=== PATIENT | male | born 1995 | race Caucasian/White ===

== ENCOUNTER → 2017-04-19 | Outpatient (CLI) | payer OTHER | LOC: BMCIMAGING 11:28 | PROVIDERS: ATTEND Family Medicine | DX: S69.91XA Unspecified injury of right wrist, hand and finger(s), initial encounter (principal) ==

== ENCOUNTER 2017-11-15 17:10 | Emergency (ER) | payer OTHER, BC ==
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
[2017-11-15] MEDS ORDERED: IOPAMIDOL (ISOVUE-300) 100 ML BTL ONE (18:47)
[2017-11-15 19:45] VITALS: BP 123/70
== END 2017-11-15 19:45 | disposition home or self-care (01) ==
DX: S20.20XA Contusion of thorax, unspecified, initial encounter (principal); Z87.891 Personal history of nicotine dependence; V49.40XA Driver injured in collision with unspecified motor vehicles in traffic accident, initial encounter
CPT/HCPCS: Q9967